=== PATIENT | female | born 1995 | race Caucasian/White ===

== ENCOUNTER 2018-01-15 11:03 | Emergency (ER) | payer SELFPAY ==
--- NOTE | 2018-01-15 13:00 | ER ---
Nurse's Notes [facility] Name: Kellee Cooper Age: 22 yrs Sex: Female : 1995 Arrival Date: 01/15/2018 Time: 11:04 Bed Waiting Private MD: Diagnosis: Presentation: 01/15 11:14 Presenting complaint: Near syncopal episode at work this morning. Sinus congestion x 1 hb week. Pt reports she is 16 weeks , denies vaginal bleeding/cramping. LMP 09/24/17. Transition of care: patient was not received from another setting of care. Onset of symptoms was January 15, 2018. Care prior to arrival: None. 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 - Social history:: Smoking status: Patient/guardian denies using tobacco. Vital Signs: 11:17 BP 113 / 61; Pulse 84; Resp 16; Temp 98.2; Pulse Ox 100% on R/A; Pain 0/10; hb ED Course: 11:04 Patient arrived in ED. as 11:16 Triage completed. hb 11:17 Arm band placed on right wrist. hb 12:58 Patient's name was called from ER lobby. No response. Unable to locate patient. Will hb disposition as left without being seen by a provider. Administered Medications: No medications were administered Outcome: 12:59 Patient left the ED. hb Signatures: Meghan Garvey Heather, RN RN hb
== END 2018-01-15 12:59 | disposition left against medical advice (07) ==
LOC: ER 11:03
DX: Z53.21 Procedure and treatment not carried out due to patient leaving prior to being seen by health care provider (principal)
CPT/HCPCS: 99281